=== PATIENT | female | born 1955 | race Caucasian/White ===

== ENCOUNTER 2017-03-09 09:53 | Outpatient (CLI) | payer OTHER ==
--- NOTE | 2017-03-09 11:26 | DIAGNOSTIC IMAGING REPORT ---
PROCEDURE: CTA THORAX WITH CONTRAST INDICATION: SOB, R/O PE, ENDOMETRIAL CANCER TECHNIQUE: 80 ml of Isovue 370 was injected intravenously and axial images were obtained of the entire thorax with 3D sagittal and coronal MIP reconstructions. COMPARISON: Chest x-ray From [facility] 02/23/2017. FINDINGS: Mild right middle lobe atelectasis. 2 mm right upper lobe (image 19) and 1.5 mm left upper lobe nodules (image 41). Ground-glass appearance of the lungs. No adenopathy or effusion. Normal thoracic aorta. No coronary atherosclerosis. Normal heart size. No pericardial effusion. Right IJ Port-A-Cath in place. Small calcified gallstones. Moderate to large hiatal hernia. Severe degenerative changes of the lower thoracic spine. IMPRESSION: 1. Ground glass appearance of the lungs. Consider atypical pneumonia, NSIP, pulmonary edema (cardiogenic and noncardiac) or drug reaction. 2. 2 mm right upper lobe and 1.5 mm left upper lobe nodules, indeterminate but likely postinflammatory although other etiologies are not excluded. Recommend follow-up CT scan in 6 months. 3. Right IJ Port-A-Cath in place 4. Cholelithiasis 5. Moderate to large hiatal hernia
--- NOTE | 2017-03-09 11:26 | DIAGNOSTIC IMAGING REPORT ---
PROCEDURE: CTA THORAX WITH CONTRAST INDICATION: SOB, R/O PE, ENDOMETRIAL CANCER TECHNIQUE: 80 ml of Isovue 370 was injected intravenously and axial images were obtained of the entire thorax with 3D sagittal and coronal MIP reconstructions. COMPARISON: Chest x-ray From [facility] 02/23/2017. FINDINGS: Mild right middle lobe atelectasis. 2 mm right upper lobe (image 19) and 1.5 mm left upper lobe nodules (image 41). Ground-glass appearance of the lungs. No adenopathy or effusion. Normal thoracic aorta. No coronary atherosclerosis. Normal heart size. No pericardial effusion. Right IJ Port-A-Cath in place. Small calcified gallstones. Moderate to large hiatal hernia. Severe degenerative changes of the lower thoracic spine. IMPRESSION: 1. Ground glass appearance of the lungs. Consider atypical pneumonia, NSIP, pulmonary edema (cardiogenic and noncardiac) or drug reaction. 2. 2 mm right upper lobe and 1.5 mm left upper lobe nodules, indeterminate but likely postinflammatory although other etiologies are not excluded. Recommend follow-up CT scan in 6 months. 3. Right IJ Port-A-Cath in place 4. Cholelithiasis 5. Moderate to large hiatal hernia
== END 2017-03-09 23:00 | disposition home or self-care (01) ==
LOC: CT SRH 09:53
DX: R06.02 Shortness of breath (principal); R91.1 Solitary pulmonary nodule; Z95.828 Presence of other vascular implants and grafts

== ENCOUNTER 2017-03-14 09:33 | Outpatient (CLI) | payer OTHER | END 2017-03-14 23:00 | disposition home or self-care (01) | LOC: RT SRH 09:33 | DX: R06.02 Shortness of breath (principal); J98.4 Other disorders of lung ==